=== PATIENT | female | born 1955 | race African-American/Black ===

== ENCOUNTER 2017-11-27 23:25 | Inpatient (IN) | payer MEDICAID ==
[~2017-11-27] VITALS: Ht 170.2 cm; Wt 113.4 kg
[~2017-11-27 23:25] MED LIST: METFORMIN HCL500 M1 ORAL
[2017-11-27] MEDS ORDERED: HYDROcodone/Acetamin 10/325 tab ORAL ONE (23:30)
[2017-11-27] MEDS ORDERED: Ketorolac 60mg Inj IM ONE (23:30)
[2017-11-27 23:32] VITALS: BP 155/89
[2017-11-27 23:58] LABS: HEMOGLOBIN 7.1 G/DL (12.0-16.0); MEAN CORPUSCULAR VOLUME 72 FL (80-99); PLATELET COUNT 266 K/UL (150-450); RED BLOOD COUNT 3.07 M/UL (4.20-5.40); RED CELL DISTRIBUTION WIDTH 15.4 % (11.6-14.8); WHITE BLOOD COUNT 7.5 K/UL (4.8-10.8)
[2017-11-28] VITALS (8 sets, daily range): BP systolic 105–177; BP diastolic 49–103
[2017-11-28 00:13] LABS: ANION GAP 9 mmol/L (5-15); BLOOD UREA NITROGEN 23 mg/dL (7-18); CALCIUM 9.3 MG/DL (8.5-10.1); CARBON DIOXIDE 25 MMOL/L (21-32); CHLORIDE 103 MMOL/L (98-107); CREATININE 1.3 MG/DL (0.55-1.30); POTASSIUM 3.7 MMOL/L (3.5-5.1); SODIUM 137 MMOL/L (136-145)
[2017-11-28 00:17] LABS: ALANINE AMINOTRANSFERASE 37 U/L (12-78); ALBUMIN 3.4 G/DL (3.4-5.0); ALKALINE PHOSPHATASE 93 U/L (46-116); ASPARTATE AMINO TRANSFERASE 31 U/L (15-37); BILIRUBIN,TOTAL 0.7 MG/DL (0.2-1.0)
[2017-11-28] MEDS ORDERED: Sodium Chloride 500ML 500 ML IV ONE (00:30)
--- NOTE | 2017-11-28 02:18 | Emergency Room Report ---
History of Present Illness General Chief Complaint: General Complaint Source: Patient, EMS Present Illness HPI Patient presents with complaints of body aches and general weakness Denies any headache or visual changes denies any chest pain patient did also complaining of some diffuse abdominal pain Reports taking Ultram Denies any blood in the stool Denies any vomiting Patient has some flight of thought And appears to have some underlying psychiatric disorder as well She reports that she was at several different hospitals and was told she was anemic however does not know the exact number Allergies: Coded Allergies: No Known Allergies (Unverified , 11/27/17) Patient History Past Medical History: see triage record Pertinent Family History: none Reviewed Nursing Documentation: PMH: Agreed; PSxH: Agreed Nursing Documentation-PMH Past Medical History: No History, Except For Hx Hypertension: Yes Hx Diabetes: Yes Review of Systems All Other Systems: negative except mentioned in HPI Physical Exam Vital Signs Date Time Temp Pulse Resp B/P (MAP) Pulse Ox O2 Delivery O2 Flow Rate FiO2 11/27/17 23:11 98.0 87 20 155/89 94 Room Air 98.1 Sp02 EP Interpretation: reviewed, normal General Appearance: well appearing, no apparent distress Head: normocephalic, atraumatic Eyes: bilateral eye PERRL, bilateral eye EOMI, bilateral eye other - Pale conjunctiva ENT: hearing grossly normal, normal pharynx, TMs + canals normal, uvula midline Neck: full range of motion, supple, no meningismus, no bony tend Respiratory: lungs clear, normal breath sounds, no rhonchi, no respiratory distress, no retraction, no accessory muscle use Cardiovascular #1: normal peripheral pulses, regular rate, rhythm, no edema, no gallop, no JVD, no murmur Gastrointestinal: normal bowel sounds, non tender, soft, no mass, no organomegaly, non-distended, no guarding, no hernia, no pulsatile mass, no rebound Genitourinary: no CVA tenderness Musculoskeletal: other - Right leg increased swelling compared to the left, there is however multiple varicose veins and evidence of varicosity Neurologic: oriented x3, responsive, wash box operator III-XII nml as tested, motor strength/ tone normal, sensory intact Psychiatric: mood/affect normal Skin: normal color, no rash, warm/dry, palpation normal Lymphatic: normal inspection, no adenopathy Medical Decision Making Diagnostic Impression: Primary Impression: Anemia Additional Impression: Myalgia ER Course Multiple differentials are considered Patient's blood work reveals significant anemia Patient does remain hemodynamically stable however Initially refusing blood transfusion however agreeable to admission Patient was also given initial seroquel dose And has improved significantly Reason the question of possible underlying psychiatric disorder Labs Test 11/27/17 23:45 White Blood Count 7.5 K/UL (4.8-10.8) Red Blood Count 3.07 M/UL (4.20-5.40) Hemoglobin 7.1 G/DL (12.0-16.0) Hematocrit 22.0 % (37.0-47.0) Mean Corpuscular Volume 72 FL (80-99) Mean Corpuscular Hemoglobin 23.0 PG (27.0-31.0) Mean Corpuscular Hemoglobin Concent 32.2 G/DL (32.0-36.0) Red Cell Distribution Width 15.4 % (11.6-14.8) Platelet Count 266 K/UL (150-450) Mean Platelet Volume 5.1 FL (6.5-10.1) Neutrophils (%) (Auto) % (45.0-75.0) Lymphocytes (%) (Auto) % (20.0-45.0) Monocytes (%) (Auto) % (1.0-10.0) Eosinophils (%) (Auto) % (0.0-3.0) Basophils (%) (Auto) % (0.0-2.0) Sodium Level 137 MMOL/L (136-145) Potassium Level 3.7 MMOL/L (3.5-5.1) Chloride Level 103 MMOL/L (98-107) Carbon Dioxide Level 25 MMOL/L (21-32) Anion Gap 9 mmol/L (5-15) Blood Urea Nitrogen 23 mg/dL (7-18) Creatinine 1.3 MG/DL (0.55-1.30) Estimat Glomerular Filtration Rate 41.4 mL/min (>60) Glucose Level 78 MG/DL (74-106) Calcium Level 9.3 MG/DL (8.5-10.1) Total Bilirubin 0.7 MG/DL (0.2-1.0) Aspartate Amino Transf (AST/SGOT) 31 U/L (15-37) Alanine Aminotransferase (ALT/SGPT) 37 U/L (12-78) Alkaline Phosphatase 93 U/L (46-116) Total Protein 6.8 G/DL (6.4-8.2) Albumin 3.4 G/DL (3.4-5.0) Globulin 3.4 g/dL Albumin/Globulin Ratio 1.0 (1.0-2.7) Rhythm Strip Diag. Results EP Interpretation: yes Rate: 77 Rhythm: NSR, no PVC's, no ectopy Last Vital Signs Date Time Temp Pulse Resp B/P (MAP) Pulse Ox O2 Delivery O2 Flow Rate FiO2 11/27/17 23:54 98.1 11/27/17 23:32 87 20 155/89 94 Room Air Status: improved Disposition: ADMITTED INPATIENT Condition: Serious Referrals: NON PHYSICIAN (PCP) Franklin Osuna DO Nov 28, 2017 02:18
[2017-11-28] MEDS ORDERED: Milk of Magnesia 30ml Ud ORAL PRN (06:15)
[2017-11-28] MEDS: metFORMIN 500mg tab ORAL SCH ×2 (08:52→18:40)
--- NOTE | 2017-11-28 11:00 | GI Initial Consult Note ---
History of Present Illness General Date patient seen: Nov 28, 2017 Time patient seen: 12:07 Reason for Hospitalization: General Complaint Referring physician: JC ALEXANDER Reason for Consultation: ANEMIA Present Illness HPI The patient is a 62-year-old female presents with body aches and generalized weakness. The patient denies any blood in the stool. Denies any vomiting. She was noted to be anemic. The patient with underlying history of psychiatric disorder. GI consulted for anemia. ROS limited, patient is a poor historian. Pt seen, awake A&O NAD with no active s/sx of N/V/D. Has complaint of generalized abdominal pain and constipation. Presents today with severe anemia, but is currently refusing any blood transfusion. Her last colonoscopy was over 5 years ago. Home Meds Reported Medications Metformin Hcl* (METFORMIN HCL*) 500 Mg Tablet, 500 MG ORAL TWICE A DAY, TAB 11/27/17 Med list reviewed/reconciled: Yes Allergies: Coded Allergies: No Known Allergies (Unverified , 11/27/17) Patient History History Provided By: Patient, Medical Record [facility] Narrative PAST MEDICAL HISTORY: Hypertension, diabetes, possibly with psychiatric disorder. Social History: Denies: smoking, alcohol use, drug use, other Review of Systems All Other Systems: negative except mentioned in HPI Physical Exam Vital Signs Date Time Temp Pulse Resp B/P (MAP) Pulse Ox O2 Delivery O2 Flow Rate FiO2 11/27/17 23:11 98.0 87 20 155/89 94 Room Air 98.1 Sp02 EP Interpretation: reviewed, normal Labs Laboratory Tests Test 11/27/17 23:45 White Blood Count 7.5 K/UL (4.8-10.8) Red Blood Count 3.07 M/UL (4.20-5.40) L Hemoglobin 7.1 G/DL (12.0-16.0) L Hematocrit 22.0 % (37.0-47.0) L Mean Corpuscular Volume 72 FL (80-99) L Mean Corpuscular Hemoglobin 23.0 PG (27.0-31.0) L Mean Corpuscular Hemoglobin Concent 32.2 G/DL (32.0-36.0) Red Cell Distribution Width 15.4 % (11.6-14.8) H Platelet Count 266 K/UL (150-450) Mean Platelet Volume 5.1 FL (6.5-10.1) L Neutrophils (%) (Auto) % (45.0-75.0) Lymphocytes (%) (Auto) % (20.0-45.0) Monocytes (%) (Auto) % (1.0-10.0) Eosinophils (%) (Auto) % (0.0-3.0) Basophils (%) (Auto) % (0.0-2.0) Sodium Level 137 MMOL/L (136-145) Potassium Level 3.7 MMOL/L (3.5-5.1) Chloride Level 103 MMOL/L (98-107) Carbon Dioxide Level 25 MMOL/L (21-32) Anion Gap 9 mmol/L (5-15) Blood Urea Nitrogen 23 mg/dL (7-18) H Creatinine 1.3 MG/DL (0.55-1.30) Estimat Glomerular Filtration Rate 41.4 mL/min (>60) Glucose Level 78 MG/DL (74-106) Calcium Level 9.3 MG/DL (8.5-10.1) Total Bilirubin 0.7 MG/DL (0.2-1.0) Aspartate Amino Transf (AST/SGOT) 31 U/L (15-37) Alanine Aminotransferase (ALT/SGPT) 37 U/L (12-78) Alkaline Phosphatase 93 U/L (46-116) Total Protein 6.8 G/DL (6.4-8.2) Albumin 3.4 G/DL (3.4-5.0) Globulin 3.4 g/dL Albumin/Globulin Ratio 1.0 (1.0-2.7) General Appearance: well appearing, no apparent distress, alert Head: normocephalic EENT: PERRL/EOMI, normal ENT inspection Neck: supple Respiratory: normal breath sounds, no respiratory distress Cardiovascular: normal rate Gastrointestinal: normal inspection, non tender, soft, normal bowel sounds, non -distended Rectal: deferred Genitourinary: no CVA tenderness Musculoskeletal: normal inspection, back normal Neurologic: normal inspection, alert, oriented x3, responsive Psychiatric: normal inspection, judgement/insight normal, memory normal Skin: normal inspection, normal color, no rash, warm/dry, palpation normal, well hydrated Lymphatic: normal inspection, no adenopathy Current Medications Current Medications Medications (Trade) Dose Ordered Sig/Mimi Route PRN Reason Start Time Stop Time Status Last Admin Dose Admin Acetaminophen (Tylenol) 650 mg Q4H PRN ORAL Mild Pain/Temp > 100.5 11/28/17 06:15 12/28/17 06:14 Al Hydroxide/Mg Hydroxide (Mylanta) 30 ml Q4HR PRN ORAL Abdominal cramps 11/28/17 06:15 12/28/17 06:14 Magnesium Hydroxide (Mom) 30 ml DAILYPRN PRN ORAL Constipation 11/28/17 06:15 12/28/17 06:14 Metformin HCl (Glucophage) 500 mg TWICE A DAY ORAL 11/28/17 09:00 12/28/17 08:59 11/28/17 08:52 Pantoprazole (Protonix) 40 mg DAILY ORAL 11/28/17 09:00 12/28/17 08:59 11/28/17 08:52 GI: Plan Problems: (1) Constipation (2) Anemia Plan labs reviewed >> severe anemia with no obvious s/sx of active bleed refused blood transfusion / endoscopy & colonoscopy had colonoscopy 5+ years ago GI procedures if necessary adv diet anemia work up OB stool r/o GI bleed monitor H&H, prn transfusions bowel regime ppi fu labs, coags Discussed with Dr. Martinez. Thank you for this patient referral, we will follow. The patient was seen and examined at bedside and all new and available data was reviewed in the patients chart. I agree with the above findings, impression and plan. (Patient seen earlier today. Signature stamp does not reflect patient encounter time.). - MD Mariya Weber,[facility] AUCTION CLERK Nov 28, 2017 11:00
--- NOTE | 2017-11-28 11:15 | History and Physical Report ---
DATE OF ADMISSION: 11/28/2017 REASON FOR ADMISSION: Anemia. HISTORY OF PRESENT ILLNESS: The patient is a 62-year-old female presents with body aches and generalized weakness. The patient denies any blood in the stool. Denies any vomiting. She was noted to be anemic. The patient with underlying history of psychiatric disorder. PAST MEDICAL HISTORY: Hypertension, diabetes, possibly with psychiatric disorder. MEDICATIONS: Reviewed. ALLERGIES: Reviewed. PHYSICAL EXAMINATION: GENERAL: A well-developed female, without significant distress. VITAL SIGNS: Stable. LUNGS: Otherwise clear. CARDIAC: S1 and S2. Regular rate and rhythm. ABDOMEN: Soft and nontender. EXTREMITIES: No edema. IMPRESSION: 1. Anemia. 2. History of diabetes. 3. History of hypertension. 4. No clear evidence of GI bleed. RECOMMENDATIONS: Transfuse total of 2 units. IV hydration. GI evaluation. Resume metformin for diabetes, Seroquel for psychiatric disorder, and if improved we will proceed with discharge planning once GI clearance has been obtained. Des Martinez M.D. DR: [place] JOB#: [id number] CC:
--- NOTE | 2017-11-28 12:15 | Diagnostic Imaging Report ---
Indication: Abdominal pain for 2 days Technique: Spiral acquisitions obtained through the abdomen and pelvis. No oral contrast utilized, per emergency room physician request No IV contrast utilized, per emergency room physician request.. Multiplanar reconstructions were generated. Total dose length product 922.71 mGycm. CTDIvol(s) 18.6 mGy. Dose reduction achieved using automated exposure control Comparison: None Findings: The appendix is normal. No evidence of diverticulosis or diverticulitis. No small bowel distention. No free or loculated intraperitoneal air or fluid is evident. The distal esophagus, stomach, duodenum are unremarkable. There is a tiny fat-containing umbilical hernia. The lack of IV contrast limits assessment of the solid organs. The liver, gallbladder, bile ducts, pancreas, spleen, adrenals, kidneys are all unremarkable. No retroperitoneal or mesenteric mass or adenopathy. No pelvic mass or adenopathy. The uterus and ovaries are unremarkable. The included lung bases demonstrate some atelectatic changes versus scarring bilaterally. The heart is borderline enlarged. The bones demonstrate fairly extensive degenerative spondylosis changes. Impression: No acute abnormality Bilateral basilar pulmonary atelectasis or scarring Mild cardiomegaly Incidental findings of small fat-containing umbilical hernia, degenerative spondylosis This agrees with the preliminary interpretation provided overnight by [facility] teleradiology service. The CT scanner at [facility] is accredited by the [employer] and the scans are performed using protocols designed to limit radiation exposure to as low as reasonably achievable to attain images of sufficient resolution adequate for diagnostic evaluation.
[2017-11-28] MEDS ORDERED: Tubing IV Secondary IV ONE (17:15)
[2017-11-28] MEDS ORDERED: D5 1/2NS 1000ml IV ONE (17:15)
[2017-11-29] VITALS: BP 149/81
[2017-11-29 04:00] VITALS: BP 147/88
[2017-11-29 07:06] LABS: BASOPHILS % (AUTO) 0.8 % (0.0-2.0); EOSINOPHILS % (AUTO) 1.6 % (0.0-3.0); HEMATOCRIT 25.9 % (37.0-47.0); HEMOGLOBIN 8.8 G/DL (12.0-16.0); MEAN CORPUSCULAR VOLUME 75 FL (80-99); MONOCYTES % (AUTO) 8.7 % (1.0-10.0); NEUTROPHILS % (AUTO) 64.8 % (45.0-75.0); PLATELET COUNT 237 K/UL (150-450); RED BLOOD COUNT 3.47 M/UL (4.20-5.40); RED CELL DISTRIBUTION WIDTH 16.5 % (11.6-14.8)
[2017-11-29 07:16] LABS: ANION GAP 9 mmol/L (5-15); BLOOD UREA NITROGEN 19 mg/dL (7-18); CARBON DIOXIDE 25 MMOL/L (21-32); CHLORIDE 106 MMOL/L (98-107); CREATININE 1.1 MG/DL (0.55-1.30); FERRITIN 27 NG/ML (8-388); POTASSIUM 4.2 MMOL/L (3.5-5.1); SODIUM 140 MMOL/L (136-145)
[2017-11-29 07:47] LABS: % IRON SATURATION 40 % (15-50); IRON 135 ug/dL (50-175); TOTAL IRON BINDING CAPACITY 339 ug/dL (250-450)
[2017-11-29] MEDS: metFORMIN 500mg tab ORAL SCH ×2 (07:48→17:15)
[2017-11-29 08:14] VITALS: BP 149/81
[2017-11-29 11:46] VITALS: BP 162/82
--- NOTE | 2017-11-29 15:22 | Consultation ---
History of Present Illness General Date patient seen: Nov 29, 2017 Chief Complaint: General Complaint Referring physician: JC ALEXANDER Reason for Consultation: ANEMIA Present Illness HPI 62-year-old female presents with body aches and generalized weakness.the pt is delusional and irritable. the pt is illogical and not able to have rational conversation about her medical condition. the pt has poor insight Allergies: Coded Allergies: No Known Allergies (Unverified , 11/27/17) Medication History Scheduled Metformin Hcl* (Metformin Hcl*), 500 MG ORAL TWICE A DAY, (Reported) Patient History Healthcare decision maker Resuscitation status Full Code Advanced Directive on File No Review of Systems Psychiatric: Reports: prior hx, anxiety, depressed feelings, emotional problems , hallucinations ROS Narrative the pt was wearing gloves Physical Exam General Appearance: no apparent distress, alert Neurologic: oriented x 3, responsive, depressed affect Last 24 Hour Vital Signs Date Time Temp Pulse Resp B/P (MAP) Pulse Ox O2 Delivery O2 Flow Rate FiO2 11/29/17 11:46 97.5 57 18 162/82 97 Room Air 97.5 11/29/17 08:14 99.0 65 20 149/81 96 Room Air 99.0 11/29/17 04:00 97.9 80 16 147/88 99 Room Air 97.9 11/29/17 00:00 97.8 76 16 149/81 99 Room Air 97.8 11/28/17 22:49 152/87 11/28/17 20:00 98.1 77 18 145/88 100 Room Air 98.1 11/28/17 19:30 98.1 78 20 155/96 99 Room Air 98.1 11/28/17 18:40 177/103 11/28/17 18:40 177/103 11/28/17 16:02 97.9 74 20 162/77 98 Room Air 97.9 Intake and Output 11/28/17 11/29/17 19:00 07:00 Intake Total 980 ml 360 ml Balance 980 ml 360 ml Intake Oral 980 ml 360 ml # Voids 3 4 # Bowel Movements 1 Laboratory Tests Test 11/29/17 05:30 11/29/17 09:35 White Blood Count 7.0 K/UL (4.8-10.8) Red Blood Count 3.47 M/UL (4.20-5.40) L Hemoglobin 8.8 G/DL (12.0-16.0) L Hematocrit 25.9 % (37.0-47.0) L Mean Corpuscular Volume 75 FL (80-99) L Mean Corpuscular Hemoglobin 25.4 PG (27.0-31.0) L Mean Corpuscular Hemoglobin Concent 34.1 G/DL (32.0-36.0) Red Cell Distribution Width 16.5 % (11.6-14.8) H Platelet Count 237 K/UL (150-450) Mean Platelet Volume 5.7 FL (6.5-10.1) L Neutrophils (%) (Auto) 64.8 % (45.0-75.0) Lymphocytes (%) (Auto) 24.0 % (20.0-45.0) Monocytes (%) (Auto) 8.7 % (1.0-10.0) Eosinophils (%) (Auto) 1.6 % (0.0-3.0) Basophils (%) (Auto) 0.8 % (0.0-2.0) Reticulocyte Count 1.0 % (0.0-2.0) Prothrombin Time 10.0 SEC (9.30-11.50) Prothromb Time International Ratio 1.0 (0.9-1.1) Activated Partial Thromboplast Time 28 SEC (23-33) Sodium Level 140 MMOL/L (136-145) Potassium Level 4.2 MMOL/L (3.5-5.1) Chloride Level 106 MMOL/L (98-107) Carbon Dioxide Level 25 MMOL/L (21-32) Anion Gap 9 mmol/L (5-15) Blood Urea Nitrogen 19 mg/dL (7-18) H Creatinine 1.1 MG/DL (0.55-1.30) Estimat Glomerular Filtration Rate > 60 mL/min (>60) Glucose Level 111 MG/DL (74-106) H Calcium Level 9.0 MG/DL (8.5-10.1) Iron Level 135 ug/dL (50-175) Total Iron Binding Capacity 339 ug/dL (250-450) Percent Iron Saturation 40 % (15-50) Unsaturated Iron Binding 204 ug/dL (112-346) Ferritin 27 NG/ML (8-388) Carcinoembryonic Antigen Pending Vitamin B12 Level 1632 PG/ML (193-986) H Folate 15.7 NG/ML (8.6-58.9) Thyroid Stimulating Hormone (TSH) 1.026 uiU/mL (0.358-3.740) Free Thyroxine 1.26 NG/DL (0.76-1.46) Stool Occult Blood Negative (NEGATIVE) Height (Feet): 5 Height (Inches): 7.00 Weight (Pounds): 250 Medications Current Medications Medications (Trade) Dose Ordered Sig/Mimi Route PRN Reason Start Time Stop Time Status Last Admin Dose Admin Acetaminophen (Tylenol) 650 mg Q4H PRN ORAL Mild Pain/Temp > 100.5 11/28/17 06:15 12/28/17 06:14 Al Hydroxide/Mg Hydroxide (Mylanta) 30 ml Q4HR PRN ORAL Abdominal cramps 11/28/17 06:15 12/28/17 06:14 Clonidine HCl (Catapres Tab) 0.1 mg Q4H PRN ORAL SBP > 150 11/28/17 18:15 12/28/17 18:14 11/28/17 22:49 Magnesium Hydroxide (Mom) 30 ml DAILYPRN PRN ORAL Constipation 11/28/17 06:15 12/28/17 06:14 11/28/17 23:36 Metformin HCl (Glucophage) 500 mg TWICE A DAY ORAL 11/28/17 09:00 12/28/17 08:59 11/29/17 07:48 Pantoprazole (Protonix) 40 mg DAILY ORAL 11/28/17 09:00 12/28/17 08:59 11/29/17 07:48 Assessment/Plan Assessment/Plan schizophrenia risperdal 2mg qhs the pt maybe discharged Tripp Hernandez M.D. Nov 29, 2017 15:22
--- NOTE | 2017-11-29 16:18 | GI Progress Note ---
Assessment/Plan Problems: (1) Anemia ICD Codes: D64.9 - Anemia, unspecified SNOMED: 071304454 (2) Constipation ICD Codes: K59.00 - Constipation, unspecified SNOMED: 30382451 Status: stable Status Narrative Discussed with Dr. Martinez. Assessment/Plan OB stool negative anemia work up reviewed >> unremarkable s/p 2 units blood defer GI procedures at this time, can be done as outpatient adv diet monitor H&H, prn transfusions bowel regime ppi fu labs okay for DC per GI standpoint The patient was seen and examined at bedside and all new and available data was reviewed in the patients chart. I agree with the above findings, impression and plan. (Patient seen earlier today. Signature stamp does not reflect patient encounter time.). - Dyllan Martinez MD Subjective Gastrointestinal/Abdominal: Reports: no symptoms Subjective c/o of varicose veins on the RLE Objective Last 24 Hour Vital Signs Date Time Temp Pulse Resp B/P (MAP) Pulse Ox O2 Delivery O2 Flow Rate FiO2 11/29/17 11:46 97.5 57 18 162/82 97 Room Air 97.5 11/29/17 08:14 99.0 65 20 149/81 96 Room Air 99.0 11/29/17 04:00 97.9 80 16 147/88 99 Room Air 97.9 11/29/17 00:00 97.8 76 16 149/81 99 Room Air 97.8 11/28/17 22:49 152/87 11/28/17 20:00 98.1 77 18 145/88 100 Room Air 98.1 11/28/17 19:30 98.1 78 20 155/96 99 Room Air 98.1 11/28/17 18:40 177/103 11/28/17 18:40 177/103 Intake and Output 11/28/17 11/29/17 19:00 07:00 Intake Total 980 ml 360 ml Balance 980 ml 360 ml Intake Oral 980 ml 360 ml # Voids 3 4 # Bowel Movements 1 Laboratory Tests Test 11/29/17 05:30 11/29/17 09:35 White Blood Count 7.0 K/UL (4.8-10.8) Red Blood Count 3.47 M/UL (4.20-5.40) L Hemoglobin 8.8 G/DL (12.0-16.0) L Hematocrit 25.9 % (37.0-47.0) L Mean Corpuscular Volume 75 FL (80-99) L Mean Corpuscular Hemoglobin 25.4 PG (27.0-31.0) L Mean Corpuscular Hemoglobin Concent 34.1 G/DL (32.0-36.0) Red Cell Distribution Width 16.5 % (11.6-14.8) H Platelet Count 237 K/UL (150-450) Mean Platelet Volume 5.7 FL (6.5-10.1) L Neutrophils (%) (Auto) 64.8 % (45.0-75.0) Lymphocytes (%) (Auto) 24.0 % (20.0-45.0) Monocytes (%) (Auto) 8.7 % (1.0-10.0) Eosinophils (%) (Auto) 1.6 % (0.0-3.0) Basophils (%) (Auto) 0.8 % (0.0-2.0) Reticulocyte Count 1.0 % (0.0-2.0) Prothrombin Time 10.0 SEC (9.30-11.50) Prothromb Time International Ratio 1.0 (0.9-1.1) Activated Partial Thromboplast Time 28 SEC (23-33) Sodium Level 140 MMOL/L (136-145) Potassium Level 4.2 MMOL/L (3.5-5.1) Chloride Level 106 MMOL/L (98-107) Carbon Dioxide Level 25 MMOL/L (21-32) Anion Gap 9 mmol/L (5-15) Blood Urea Nitrogen 19 mg/dL (7-18) H Creatinine 1.1 MG/DL (0.55-1.30) Estimat Glomerular Filtration Rate > 60 mL/min (>60) Glucose Level 111 MG/DL (74-106) H Calcium Level 9.0 MG/DL (8.5-10.1) Iron Level 135 ug/dL (50-175) Total Iron Binding Capacity 339 ug/dL (250-450) Percent Iron Saturation 40 % (15-50) Unsaturated Iron Binding 204 ug/dL (112-346) Ferritin 27 NG/ML (8-388) Carcinoembryonic Antigen Pending Vitamin B12 Level 1632 PG/ML (193-986) H Folate 15.7 NG/ML (8.6-58.9) Thyroid Stimulating Hormone (TSH) 1.026 uiU/mL (0.358-3.740) Free Thyroxine 1.26 NG/DL (0.76-1.46) Stool Occult Blood Negative (NEGATIVE) Height (Feet): 5 Height (Inches): 7.00 Weight (Pounds): 250 General Appearance: WD/WN, no apparent distress, alert Cardiovascular: normal rate Respiratory/Chest: normal breath sounds, no respiratory distress Abdominal Exam: normal bowel sounds, non tender, soft Extremities: normal range of motion, non-tender Kp Meraz NP Nov 29, 2017 16:18
[2017-11-29] MEDS ORDERED: RISPERDAL2 MG ORAL (16:27)
--- NOTE | 2017-11-29 17:13 | General Progress Note ---
Assessment/Plan Assessment/Plan IMPRESSION: 1. Anemia. 2. History of diabetes. 3. History of hypertension. 4. No clear evidence of GI bleed. PLAN cleared by all psych noted gi for outpatient colon and egd son aware will dc home iron recommended on discharge Subjective Allergies: Coded Allergies: No Known Allergies (Unverified , 11/27/17) Subjective refused procedures called son and update given Objective Last 24 Hour Vital Signs Date Time Temp Pulse Resp B/P (MAP) Pulse Ox O2 Delivery O2 Flow Rate FiO2 11/29/17 11:46 97.5 57 18 162/82 97 Room Air 97.5 11/29/17 08:14 99.0 65 20 149/81 96 Room Air 99.0 11/29/17 04:00 97.9 80 16 147/88 99 Room Air 97.9 11/29/17 00:00 97.8 76 16 149/81 99 Room Air 97.8 11/28/17 22:49 152/87 11/28/17 20:00 98.1 77 18 145/88 100 Room Air 98.1 11/28/17 19:30 98.1 78 20 155/96 99 Room Air 98.1 11/28/17 18:40 177/103 11/28/17 18:40 177/103 Intake and Output 11/28/17 11/29/17 19:00 07:00 Intake Total 980 ml 360 ml Balance 980 ml 360 ml Intake Oral 980 ml 360 ml # Voids 3 4 # Bowel Movements 1 Laboratory Tests 11/29/17 05:30: White Blood Count 7.0, Red Blood Count 3.47L, Hemoglobin 8.8L, Hematocrit 25.9L , Mean Corpuscular Volume 75L, Mean Corpuscular Hemoglobin 25.4L, Mean Corpuscular Hemoglobin Concent 34.1, Red Cell Distribution Width 16.5H, Platelet Count 237, Mean Platelet Volume 5.7L, Neutrophils (%) (Auto) 64.8, Lymphocytes (%) (Auto) 24.0, Monocytes (%) (Auto) 8.7, Eosinophils (%) (Auto) 1.6, Basophils (%) (Auto) 0.8, Reticulocyte Count 1.0, Prothrombin Time 10.0, Prothromb Time International Ratio 1.0, Activated Partial Thromboplast Time 28, Sodium Level 140, Potassium Level 4.2, Chloride Level 106, Carbon Dioxide Level 25, Anion Gap 9, Blood Urea Nitrogen 19H, Creatinine 1.1, Estimat Glomerular Filtration Rate > 60, Glucose Level 111H, Calcium Level 9.0, Iron Level 135, Total Iron Binding Capacity 339, Percent Iron Saturation 40, Unsaturated Iron Binding 204, Ferritin 27, Carcinoembryonic Antigen [Pending], Vitamin B12 Level 1632H, Folate 15.7, Thyroid Stimulating Hormone (TSH) 1.026, Free Thyroxine 1.26 11/29/17 09:35: Stool Occult Blood Negative Height (Feet): 5 Height (Inches): 7.00 Weight (Pounds): 250 Objective GENERAL: A well-developed female, without significant distress. agitated VITAL SIGNS: Stable. LUNGS: Otherwise clear. CARDIAC: S1 and S2. Regular rate and rhythm. ABDOMEN: Soft and nontender. EXTREMITIES: No edema. varicose veins Des Martinez MD Nov 29, 2017 17:13
--- NOTE | 2017-11-30 12:09 | Discharge Summary ---
Discharge Summary Discharge Summary _ DATE OF ADMISSION: 11/28/2017 DATE OF DISCHARGE: 11/29/2017 REASON FOR ADMISSION: 62 years old female with past medical history significant for hypertension, diabetes, psychiatric disorder , presented with complaint of generalized weakness, diffuse abdominal pain and body aches. Denied shortness of breath , chest pain. Denied nausea, vomiting, no blood in stool. Upon evaluation vital signs were stable . Laboratory workup showed no leukocytosis, hemoglobin 7.1, hematocrit 22, with MCV of 72. Glucose 78 , electrolytes and LFT were within normal limits, BUN 23 ,creatinine 1.3. EKG revealed normal sinus rhythm. CT of the abdomen and pelvis revealed no acute intra-abdominal pathology. Patient was admitted with diagnosis of anemia, diabetes mellitus, hypertension, psychiatric disorder. CONSULTANTS: GI specialist Dr Martinez psychiatrist [facility]SE: Patient admitted. Patient started on intravenous fluids. Patient was transfused with 2 units of packed red blood cell. Anemia workup initiated. GI seen and evaluated patient. No active bleeding noted. Bowel regimen instituted . Patient started on PPI. Diet was slowly advanced as tolerated. Pain management was addressed. Per GI recommendations, defer GI procedure at this time since no acute bleeding and hemoglobin and hematocrit improved after transfusion. GI procedures can be done as an outpatient. Anemia workup was unremarkable with stable iron, B12 and folate levels. Likely anemia of chronic disease. On CEA was within normal limits, stool for occult blood was negative. Venous duplex bilateral lower extremity revealed no evidence of acute DVT, but showed incidental findings of bilateral enlarged Rothman's cyst as well as multiple varicose veins. Blood sugar was managed with metformin. Blood pressure was closely monitored. Supportive care provided. Psychiatrist seen and evaluated the patient, diagnosed patient with schizophrenia and started her on Risperdal. Prior to discharge, after transfusion hemoglobin -8.8, hematocrit -25.9. Creatinine down to 1.1 with IV hydration . Abdominal pain resolved, Patient was able to tolerate diet. Patient was stable for discharge home Due to the rapid and unexpected improvement in patient's condition, patient was discharged in one day. FINAL DIAGNOSES: Acute Anemia, requiring blood transfixion Diabetes mellitus Hypertension Constipation Schizophrenia DISCHARGE MEDICATIONS: See Medication Reconciliation list. DISCHARGE INSTRUCTIONS: Patient was discharged home. Follow up with primary care provider. Recommended outpatient GI and colonoscopy I have been assigned to dictate discharge summary for this account. I was not involved in the patient's management. Kenisha Munoz NP Nov 30, 2017 12:09
== END 2017-11-29 18:35 | disposition home or self-care (01) | DRG 663 ==
LOC: EDBD 23:25 → EMR 23:45 → 4W 11-28 00:59 → EDBEDREQ 11-28 02:06
PROC: 30233N1 Transfusion of Nonautologous Red Blood Cells into Peripheral Vein, Percutaneous Approach (ICD-10-PCS; principal; 2017-11-28)
DX: D64.9 Anemia, unspecified (principal); F20.9 Schizophrenia, unspecified; I10 Essential (primary) hypertension; K59.00 Constipation, unspecified; E11.9 Type 2 diabetes mellitus without complications; Z79.84 Long term (current) use of oral hypoglycemic drugs
CPT/HCPCS: 36415; 74176; 80048; 80053; 82270; 82378; 82607; 82728; 82746; 83540; 83550; 84439; 84443; 85025; 85044; 85610; 85730; 86850; 86900; 86901; 86920; 93970; 99285

== ENCOUNTER 2018-10-29 00:43 | Emergency (ER) | payer MEDICAID ==
[~2018-10-29] VITALS: Ht 160 cm; Wt 72.6 kg
[~2018-10-29 00:43] MED LIST changes: +RISPERDAL2 MG ORAL
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
[2018-10-29 01:30] VITALS: BP 166/92
[2018-10-29] MEDS ORDERED: Tylenol #3 tab (300mg/30mg) ORAL ONE (01:30)
--- NOTE | 2018-10-29 02:00 | NUR ---
ED Nurse Note: PT IN BED SLEEPING, AROUSS EASILY TO VERBAL STIMULI, PT COMES OUT IN MIDDLE OF ROOM YELLING AT STAFF TO REFILL HER MEDICATIONS, PT DID NOT SPEAK OF NEEDED REFILLS BEFORE, MD AT BEDSIDE, ALSO ORDERED NEW PAIN MEDS FOR PT , PT SUDDENNLY STARTED YELLING AND SCREAMING , MD WAS PRESENT AND SPOKE WITH PT, PT ANGRY ABOUT HER BLOOD SUGAR LEVEL WHICH SHE DID NOT MENTION ALSO, WILL CONTINUE TO CLOSELY MONITOR AND RESUME CARE ORDERED AND PT ALLOWS.
[2018-10-29] MEDS ORDERED: Methocarbamol 750mg tab ORAL ONE (02:30)
--- NOTE | 2018-10-29 03:00 | NUR ---
ED Nurse Note: pt has been discharged but will go in am, pt is riding bus, aware, pt refuses to w
--- NOTE | 2018-10-29 03:00 | NUR ---
ED Nurse Note: pt has been discharged to home, pt will stay and rest until am, pt has to ride bus, pt refuses to wear monitoring or b/p equipment, md aware and states is ok, will continue to closely monitor until am.
--- NOTE | 2018-10-29 03:00 | NUR ---
Note bonnie in EDM - 10/29/18 at 0430 by MOLLY ED Nurse Note: pt has been discharged but will go in am, pt is riding bus, aware, pt refuses to w
--- NOTE | 2018-10-29 03:49 | NUR ---
ED Nurse Note: assessed blood glucose; 118. ermd notified. no new orders received.
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
[2018-10-29] MEDS ORDERED: HYDROCHLOROTH12.5 M2 ORAL (05:50)
[2018-10-29] MEDS ORDERED: ZESTRIL5 MG ORAL (05:50)
[2018-10-29] MEDS ORDERED: TRAMADOL HCL50 MG ORAL (05:50)
[2018-10-29] MEDS ORDERED: METFORMIN HCL500 M1 ORAL (05:50)
[2018-10-29 06:05] VITALS: BP 151/76
--- NOTE | 2018-10-29 06:05 | NUR ---
ED Nurse Note: PT AWAKENED ON HER OWN, PT IS ALERT AND ORIENTED X 4, AMBULATING TO BATHROOM WELL, STATES PAIN IS BETTER AT 5/10, PT IS READY TO GO HOME, PT GIVEN TAXI ASSIST, V/S STABLE, PT GIVEN F/U INFO, AFTER CARE INSTRUCTIONS AND RE-VERBALIZES S/S TO CONTINUE TO MONITOR FOR, PT DENIES BEING HOMELESS, GIVEN SANDWICH AND JUICE BEFORE LEAVING AND HAS CLEAN DRY CLOTHING, NAD NOTED DURING PT D/C TO HOME IN TAXI.
[2018-10-29 06:15] VITALS: BP 151/76
--- NOTE | 2018-10-29 23:54 | Diagnostic Imaging Report ---
EXAM: XR Left Shoulder Complete, 2 or More Views CLINICAL HISTORY: PAIN TECHNIQUE: Two or more views of the left shoulder. COMPARISON: No relevant prior studies available. FINDINGS: Generalized osteopenia. No radiographic evidence of acute fracture or dislocation. High riding left humeral head. Acromioclavicular joint is normal caliber. Visualized portions of the left hemithorax are unremarkable. IMPRESSION: No radiographic evidence of acute fracture or dislocation. High riding left humeral head may indicate underlying rotator cuff arthropathy.
== END 2018-10-29 06:15 | disposition home or self-care (01) ==
LOC: EDBD 00:43 → EMR 01:30
DX: M25.512 Pain in left shoulder (principal); E11.9 Type 2 diabetes mellitus without complications; I10 Essential (primary) hypertension
CPT/HCPCS: 99283